=== PATIENT | female | born 1950 | race Caucasian/White ===

== ENCOUNTER 2016-06-10 15:24 | Emergency (ER) | payer BC ==
[~2016-06-10] VITALS: Ht 154.9 cm; Wt 120.5 kg
[~2016-06-10 15:24] MED LIST: AMLOPIDINE; ARICEPT10 MG PO; ASPIRIN 81M81 MG/TA2 PO; ASPIRIN E.C. 8181 M1 PO; ATIVAN 1MG T1 MG/TAB PO; ATIVAN0.5 MG PO; AVELOX 400MG T400 MG PO; CELEXA20 MG PO; CLARITIN 1010 MG/TAB PO; HCTZ 25MG25 MG PO; K-DUR 10 MEQ T10 MEQ PO; LABETALOL100 MG PO; LASIX PO; LASIX40 MG PO; LEVAQUIN 5500 MG/TAB PO; LISINOPRIL/HCTZ1 TA1 PO; LISINOPRIL40 MG PO; LORTAB 5/500 501 TAB PO; LORTAB 7.5/5001 TAB PO; METRONIDAZOLE500 MG PO; NORCO 325 MG-51 TAB PO; PEPCID 20MG TAB20 MG PO; PERCOCET 5/321 UDTAB PO; PHENERGAN 25 TA25 MG PO; PRED FORTE 1 ML1 ML OP; PROAIR; SEPTRA DS 8001 TAB PO; SINGULAIR10 MG PO; TESSALON PERLE200 MG PO; TYLENOL/CODEINE1 ML PO; ULTRAM 50MG TAB50 MG PO; VALIUM 5MG T5 MG/TAB PO; XYLOCAINE2% TP; ZOCOR20 MG PO; [UNRECOGNIZED DRUG - OTHER]
[2016-06-10 15:27] VITALS: TEMP 99.8
[2016-06-10 16:19] LABS: INFLUENZA B NEGATIVE
[2016-06-10 17:44] LABS: BASO % 0.4 % (0.0-2.0); EOS # 0.2 (0.0-0.7); EOS % 1.4 % (0-4.0); GRAN # 7.6 (1.4-6.5); GRAN % 69.3 % (42.2-75.2); HEMATOCRIT 41.4 % (37.0-47.0); HEMOGLOBIN 13.7 g/dl (12.5-16.0); LYMPH # 1.7 (1.2-3.4); LYMPH % 15.7 % (20.0-51.0); MEAN CELL VOLUME 96 fl (80.0-100.0); MEAN CORPUSCULAR HEMOGLOBIN 32 pg (27.0-31.0); MEAN CORPUSCULAR HGB CONC 33 g/dl (33.0-37.0); MEAN PLATELET VOLUME 11.4 fl (7.4-10.4); MONO # 1.4 (0.1-0.6); MONO % 12.8 % (1.7-9.3); PLATELET COUNT 289 K/mm3 (130-400); RED BLOOD COUNT 4.31 M/mm3 (4.10-5.30); REDCELL DISTRIBUTION WIDTH-CV 14.2 % (11.5-14.5); WHITE BLOOD COUNT 10.9 K/mm3 (4.8-10.8)
[2016-06-10 17:53] LABS: ADJUSTED CALCIUM 9.1 mg/dL (8.4-10.2); BILIRUBIN,TOTAL 1.2 mg/dL (0.0-1.0); CALCIUM 9.1 mg/dL (8.4-10.2); CREATININE, serum 0.92 mg/dL (0.52-1.25); TOTAL PROTEIN 7.7 gm/dL (6.4-8.2)
[2016-06-10] MEDS ORDERED: DOXYCYCLINE 10100 MG PO (18:04)
[2016-06-10 18:18] VITALS: BP 140/86; PULSE 80
== END 2016-06-10 18:38 | disposition home or self-care (01) ==
LOC: COL.ER 15:24
PROVIDERS: Emergency Medicine
DX: J18.9 Pneumonia, unspecified organism (principal); I10 Essential (primary) hypertension; Z98.61 Coronary angioplasty status

== ENCOUNTER → 2016-09-29 | Outpatient (CLI) | payer MEDICARE ==
[~2016-09-29] MED LIST changes: +DOXYCYCLINE 10100 MG PO
== END ==
LOC: MC.RAD 13:36
DX: Z12.31 Encounter for screening mammogram for malignant neoplasm of breast (principal)

== ENCOUNTER → 2017-01-31 | Outpatient (CLI) | payer MEDICARE | LOC: COL.RAD 10:09 | DX: R05 Cough (principal) ==

== ENCOUNTER → 2017-04-10 | Outpatient (CLI) | payer MEDICARE ==
[~2017-04-10] MED LIST changes: +FLONASEALLERGY NS; +PRILOSEC 20MG20 MG PO
[2017-04-12 05:45] LABS: ALTERNARIA TENUIS IgE <0.05 IU/mL (<0.05); ALTERNARIA TENUIS IgE CLASS Negative (()); BERMUDA GRASS IGE CLASS Negative (()); BOX ELDER-MAPLE IgE <0.05 IU/mL (<0.05); BOX ELDER/MAPLE IgE CLASS Negative (()); CAT EPITHELIUM IGE CLASS Negative (()); CLASS INTERPRETATION GUIDE IU/mL (()); COCKROACH CLASS Negative (()); COTTONWOOD IGE CLASS Negative (()); DOG DANDER IGE CLASS Negative (()); DUST MITES IGE (D.F.) <0.05 IU/mL (<0.05); DUST MITES IGE (D.P.) <0.05 IU/mL (<0.05); DUST MITES IGE D.F. CLASS Negative (()); DUST MITES IGE D.P. CLASS Negative (()); FIREBUSH CLASS Negative (()); OAK IGE <0.05 IU/mL (<0.05); RED TOP IGE CLASS Negative (()); RED TOP IgE <0.05 IU/mL (<0.05); ROUGH MARSH ELDER IGE CLASS Negative (()); RUSSIAN THISTLE CLASS Negative (()); SHORT RAGWEED IGE CLASS Negative (())
== END ==
LOC: COL.PUL 14:10
PROVIDERS: Internal Medicine Pulmonary Disease
DX: R06.02 Shortness of breath (principal); T78.40XA Allergy, unspecified, initial encounter

== ENCOUNTER → 2017-04-30 | Outpatient (CLI) | payer MEDICARE ==
[~2017-04-30] MED LIST changes: +CELEXA 20MG20 MG/TAB PO; -CELEXA20 MG PO; -LABETALOL100 MG PO; +NORMODYNE100 MG PO
== END ==
LOC: COL.PUL 12:52
DX: R06.02 Shortness of breath (principal)
CPT/HCPCS: J7674

== ENCOUNTER → 2018-01-29 | Outpatient (CLI) | payer MEDICARE | LOC: COL.RAD 10:48 | DX: K21.9 Gastro-esophageal reflux disease without esophagitis (principal); K44.9 Diaphragmatic hernia without obstruction or gangrene; F45.8 Other somatoform disorders ==

== ENCOUNTER → 2019-01-23 | Outpatient (CLI) | payer MEDICARE | LOC: MC.RAD 11:07 | DX: Z12.31 Encounter for screening mammogram for malignant neoplasm of breast (principal) ==

== ENCOUNTER → 2023-07-16 | Day surgery (SDC) | payer MEDICARE ==
[~2023-07-16] VITALS: Ht 154.9 cm; Wt 103.7 kg
[~2023-07-16] MED LIST changes: +ALDACTONE 25MG25 M1 PO; +ATIVAN 0.50.5 MG/TAB PO; +B-12 500 MCG PO; +CRESTOR20 MG PO; +LR 1,000 ML IV SCH; +Lidocaine PF 2% (20 MG/ML) 5 ML VIAL ONE; +Ondansetron 4 MG/2 ML VIAL IV PRN; +PRIL40 PO; +VITAMIN D31000 IU PO
[2023-07-16 09:53] VITALS: BP 124/70; PULSE 65; TEMP 97.8
[2023-07-16 10:55] VITALS: BP 132/70; PULSE 71; TEMP 97.1
--- NOTE | 2023-07-16 10:55 | NUR ---
PATIENT AMBULATED TO CHAIR WITH STEADY GAIT, ASSIST OF 2. ALERT AND AWAKE. DENIES PAIN, NAUSEA AND SHORTNESS OF BREATH. BREATHING REGULAR AND UNLABORED ON ROOM AIR. SKIN WARM AND DRY. IV IN PLACE. NURSE HANDOFF COMPLETED IN ROOM. SEE CHART FOR VITAL SIGNS. PATIENT HAD CRANBERRY JUICE, APPLESAUCE AND OUMAR CRACKERS. FOOD AND DRINK TOLERATED WELL. CALL LIGHT IN REACH.
[2023-07-16 11:00] VITALS: BP 129/73; PULSE 76
[2023-07-16 11:15] VITALS: BP 135/72; PULSE 71
[2023-07-16 11:30] VITALS: BP 121/81; PULSE 72
[2023-07-16 11:45] VITALS: BP 126/78; PULSE 71
--- NOTE | 2023-07-16 12:05 | NUR ---
1143: MET WITH PATIENT IN ROOM TO DISCUSS PROCEDURE. 1202: DISCHARGE TEACHING COMPLETED WITH PRINTED EDUCATION AND INSTRUCTIONS SENT HOME WITH PATIENT. PATIENT VERBALIZED UNDERSTANDING OF TEACHING. 1203: IV REMOVED. GAUZE AND COBAN PLACED OVER SITE. 1205: PATIENT DISCHARGED HOME WITH DAUGHTER [employer] [employer].
== END ==
LOC: SDCO 08:43
DX: Z12.11 Encounter for screening for malignant neoplasm of colon (principal); D12.2 Benign neoplasm of ascending colon; K51.40 Inflammatory polyps of colon without complications; K55.20 Angiodysplasia of colon without hemorrhage; K57.30 Diverticulosis of large intestine without perforation or abscess without bleeding; K64.0 First degree hemorrhoids; G47.33 Obstructive sleep apnea (adult) (pediatric); Z86.010 Personal history of colon polyps; Z99.81 Dependence on supplemental oxygen
CPT/HCPCS: J2704; J7120